=== PATIENT | female | born 1960 | race Caucasian/White ===

== ENCOUNTER 2022-03-19 06:05 | Inpatient (IN) | payer OTHER ==
[2022-03-10 11:48] LABS: BASOPHILS # (AUTO) 0.1 X10'3 (0-0.2); EOSINOPHILS # (AUTO) 0.2 X10'3 (0-0.9); EOSINOPHILS % (AUTO) 3.3 % (0-6); LYMPHOCYTES # (AUTO) 1.8 X10'3 (1.1-4.8); LYMPHOCYTES % (AUTO) 28.8 % (21-51); MEAN CORPUSCULAR HEMOGLOBIN 30.4 PG (27.0-31.0); MEAN CORPUSCULAR HGB CONC 34.4 g/dL (33.0-36.5); MEAN CORPUSCULAR VOLUME 88.2 FL (78-98); MEAN PLATELET VOLUME 8.2 FL (7.4-10.4); MONOCYTES # (AUTO) 0.4 X10'3 (0-0.9); MONOCYTES % (AUTO) 6.2 % (2-12); NEUTROPHILS # (AUTO) 3.8 X10'3 (1.8-7.7); NEUTROPHILS % (AUTO) 60.7 % (42-75); PRE OP HEMATOCRIT 41.5 % (35.0-45.0); PRE OP HEMOGLOBIN 14.3 g/dL (12.0-16.0); PRE OP PLATELET COUNT 247 X10'3 (140-440); RED BLOOD COUNT 4.71 X10'6 (4.20-5.60); RED CELL DISTRIBUTION WIDTH 12.7 % (11.5-14.5)
[2022-03-10 12:01] LABS: ALBUMIN 3.8 G/DL (3.4-5.0); ALBUMIN/GLOBULIN RATIO 1.2 (1.1-1.5); ALKALINE PHOSPHATASE 64 IU/L (46-116); BLOOD UREA NITROGEN 14 MG/DL (7-18); BUN/CREATININE RATIO 20.9 (6.6-38.0); CALCIUM 9.7 MG/DL (8.5-10.1); CHLORIDE 105 MMOL/L (99-107); CREATININE 0.67 MG/DL (0.40-0.90); PRE OP ALT 34 U/L (30-65); PRE OP ANION GAP 10 (8-16); PRE OP AST 15 U/L (10-37); PRE OP BILIRUB, TOTAL 0.4 MG/DL (0.0-1.0); PRE OP GLUCOSE 104 MG/DL (70-104); PRE OP POTASSIUM 4.2 MMOL/L (3.4-5.1); PRE OP SODIUM 143 MMOL/L (135-145); TOTAL CARBON DIOXIDE 27.7 MMOL/L (24-32); TOTAL PROTEIN 7.1 G/DL (6.4-8.2); eGFR 90 ML/MIN
[~2022-03-19] VITALS: Ht 180.3 cm; Wt 107.8 kg
[2022-03-19] VITALS (20 sets, daily range): BP systolic 123–157; BP diastolic 62–96
[~2022-03-19 06:05] MED LIST: CHOL20004 PO; CYCL5TAB PO; DECONGESTANT PO; LISI20TA28 PO; PREG100C PO; SUMA25TA35 PO; SYN0.088T PO; TUMERIC PO; cefazolin/dext.iso 2gm/50ml IV ONE; famotidine 20mg tablet PO ONE; ringers solution, lacted 1,000 ML IV SCH; vancomycin 1,500 MG in NS 300ml IV soln IV ONE
[2022-03-19] MEDS ORDERED: ketorolac trometh. 30mg/ml inj. ONE (06:55)
[2022-03-19] MEDS ORDERED: epiNEPHrine 1 mg/ml inj ONE (06:55)
[2022-03-19] MEDS ORDERED: ROPIVAcaine 0.5% (5mg/ml) 30ml vial ONE ×2 (06:56→09:26)
[2022-03-19] MEDS ORDERED: morphine 10mg/ml inj. ONE (06:56)
[2022-03-19] MEDS ORDERED: vancomycin 1,000mg inj ONE (06:56)
--- NOTE | 2022-03-19 07:30 | NUR ---
PT CSM INTACT TO BILATERAL LE, WAS ABLE TO COMPLETE 5 DAYS OF SHOWERS/OINTMENT, PT CHOSE NOT TO WATCH DVD
[2022-03-19] MEDS ORDERED: tranexamic acid inj. 1,000 MG in 0.7% saline 100 ML PMX IV ONE (07:34)
[2022-03-19] MEDS ORDERED: tetracaine 1% (10mg/ml) pres. free inj. ONE (07:36)
[2022-03-19] MEDS ORDERED: meperidine/PF 25mg/ml syringe IV PRN ×3 (08:10)
[2022-03-19] MEDS ORDERED: hydrALAZINE 20mg/ml inj. IV PRN (08:10)
[2022-03-19] MEDS ORDERED: ringers solution, lacted 1,000 ML IV SCH (08:10)
[2022-03-19] MEDS ORDERED: acetaminophen 1,000mg/100ml IV 100 ML IV PRN (08:10)
[2022-03-19] MEDS ORDERED: ROPIVAcaine 0.2%/PF PUMP/bolus 545 ML ADDCANAL SCH (08:10)
[2022-03-19] MEDS ORDERED: labetalol 20mg/4ml (5mg/ml) syringe IV PRN (08:10)
[2022-03-19] MEDS ORDERED: ROPIVAcaine 0.2% (10 MG/5 ML) BOLUS INJECTION ADDCANAL PRN (08:10)
[2022-03-19] MEDS ORDERED: morphine 4 MG/ML inj SYRINge IV PRN (08:10)
[2022-03-19] MEDS ORDERED: morphine 2 MG/ML inj. syringe IV PRN (08:10)
[2022-03-19] MEDS ORDERED: ondansetron/PF 4mg/2ml inj IV PRN ×3 (08:10→11:40)
[2022-03-19] MEDS ORDERED: proCHLORperazine 10 MG/2 ml inj IV PRN (08:10)
[2022-03-19] MEDS ORDERED: fentaNYL/PF 50MCG/1 ML 2ML syringe ONE (08:15)
[2022-03-19] MEDS ORDERED: midazolam 1 mg/ML 2ml injection ONE (08:16)
[2022-03-19] MEDS ORDERED: morphine /PF 1mg/ml 10ml inj. ONE (08:23)
[2022-03-19] MEDS ORDERED: propofol inj 20 ML IV ONE ×3 (08:56→09:26)
[2022-03-19] MEDS ORDERED: naloxone 2mg/2ml inj 2 MG in normal saline 500ml IV soln 500 ML IV PRN (09:30)
[2022-03-19] MEDS ORDERED: naloxone 0.4 mg/ml inj IV PRN ×2 (09:30→11:40)
[2022-03-19] MEDS ORDERED: diphenhydrAMINE 50 mg/ml inj IV PRN (09:30)
[2022-03-19] MEDS ORDERED: 0.9 % SODIUM CHLORIDE 10 ML VIAL ONE (10:50)
[2022-03-19] MEDS ORDERED: ceFAZolin 1000mg inj ONE (10:50)
--- NOTE | 2022-03-19 11:25 | NUR ---
Received from OR via BED, accompanied by Anesthesiologist and report given by Anesthesiologist. PATIENT WAKING UP, NO S/S OF PAIN, V/S WNL, SCD ON, 18G TO LUE, drsg to LEFT KNEE CDI with ON Q BALL AT 2ML/HR. F/C DRAINING CLEAR YELLOW URINE.
[2022-03-19] MEDS ORDERED: magnesium hydroxide 30ml (MOM) UD suspension PO PRN (11:40)
[2022-03-19] MEDS ORDERED: HYDROmorphone inj. 0.5 MG/0.5 ML DISP.SYRIN IV PRN (11:40)
[2022-03-19] MEDS ORDERED: bisacodyl 10mg suppository rectal RC PRN (11:40)
[2022-03-19] MEDS ORDERED: oxyCODONE IR 5mg (immed. release) tablet PO PRN (11:40)
[2022-03-19] MEDS ORDERED: diphenhydrAMINE 25mg capsule PO PRN ×2 (11:40)
[2022-03-19] MEDS ORDERED: HYDROmorphone 1 mg/ml syringe IV PRN (11:40)
[2022-03-19] MEDS ORDERED: acetaminophen 325mg tablet PO PRN (11:40)
--- NOTE | 2022-03-19 13:52 | NUR ---
I have received report from AMPARO Reyes in recovery and had the opportunity to ask questions and assume patient care.
--- NOTE | 2022-03-19 13:55 | NUR ---
PATIENT A&OX4, DENIES PAIN, V/S WNL, SCD ON, 18G TO LUE, drsg to LEFT KNEE CDI with ON Q BALL AT 2ML/HR. F/C DRAINING CLEAR YELLOW URINE.PATIENT TAKEN TO ROOM WITH ALL BELONGINGS AND HOOKED UP TO MONITORS IN ROOM AND GIVEN CALL LIGHT, REPORT GIVEN TO RN WHO HAS TAKEN OVER PATIENT CARE.
--- NOTE | 2022-03-19 14:05 | NUR ---
Pt arrived to O/N floor on hospital bed, accompanied by .
[2022-03-19] MEDS ORDERED: tranexamic acid 1gm/0.7% sal. 100 ML IV ONE (15:00)
[2022-03-19] MEDS: gabapentin 300mg capsule PO SCH ×2 (15:26→21:15)
[2022-03-19] MEDS: acetaminophen 325mg tablet PO SCH ×2 (15:26→21:14)
[2022-03-19] MEDS: potassium cl 20mEq in 1/2 NS 1,000 ML IV SCH ×2 (15:29→19:40)
--- NOTE | 2022-03-19 18:33 | NUR ---
Problems reprioritized. Patient report given, questions answered & plan of care reviewed with AMPARO Garcia.
[2022-03-19] MEDS ORDERED: SUMAtriptan 25 MG tablet PO PRN (19:10)
[2022-03-19] MEDS ORDERED: cyclobenzaprine 10mg tablet PO PRN (19:10)
[2022-03-19] MEDS ORDERED: SUMA50TA PO (19:14)
[2022-03-19] MEDS ORDERED: LEVO88TA7 PO (19:14)
[2022-03-19] MEDS: pregabalin 25mg capsule PO SCH (21:14)
[2022-03-19] MEDS: sennosides 8.6mg tablet PO SCH (21:15)
[2022-03-19] MEDS: vancomycin/NS 1 GM ADD-VANTAGE 250 ML IV SCH (21:15)
[2022-03-20] MEDS: ceFAZolin/D5W- 1GM premix 50 ML IV SCH ×3 (01:05→16:34)
[2022-03-20 02:00] VITALS: BP 133/72
[2022-03-20] MEDS: acetaminophen 325mg tablet PO SCH ×4 (02:00→20:20)
[2022-03-20] MEDS: potassium cl 20mEq in 1/2 NS 1,000 ML IV SCH ×2 (03:40→11:40)
[2022-03-20 06:00] VITALS: BP 165/96
--- NOTE | 2022-03-20 06:27 | NUR ---
Patient in room [facility] 4014. I have received report from AMPARO Garcia and had the opportunity to ask questions and assume patient care.
[2022-03-20 06:45] LABS: BASOPHILS % (AUTO) 0.4 % (0-1); EOSINOPHILS # (AUTO) 0.3 X10'3 (0-0.9); EOSINOPHILS % (AUTO) 4.3 % (0-6); HEMATOCRIT 37.3 % (35.0-45.0); HEMOGLOBIN 12.7 g/dl (12.0-16.0); LYMPHOCYTES % (AUTO) 13.3 % (21-51); MEAN CORPUSCULAR HEMOGLOBIN 30.2 PG (27.0-31.0); MEAN CORPUSCULAR VOLUME 88.7 FL (78-98); MEAN PLATELET VOLUME 8.2 FL (7.4-10.4); MONOCYTES # (AUTO) 0.6 X10'3 (0-0.9); MONOCYTES % (AUTO) 8.4 % (2-12); NEUTROPHILS # (AUTO) 5.6 X10'3 (1.8-7.7); NEUTROPHILS % (AUTO) 73.6 % (42-75); PLATELET COUNT 179 X10'3 (140-440); RED BLOOD COUNT 4.21 X10'6 (4.20-5.60); RED CELL DISTRIBUTION WIDTH 12.8 % (11.5-14.5); WHITE BLOOD COUNT 7.7 X10'3 (4.5-11.0)
[2022-03-20 06:59] LABS: ANION GAP 7 (8-16); CHLORIDE 106 MMOL/L (99-107); POTASSIUM 4.2 MMOL/L (3.5-5.1); SODIUM 142 MMOL/L (135-145)
[2022-03-20] MEDS: lisinopril 10 MG tablet PO SCH (08:00)
[2022-03-20] MEDS: pregabalin 25mg capsule PO SCH ×2 (08:31→20:18)
[2022-03-20] MEDS: gabapentin 300mg capsule PO SCH ×3 (08:31→20:20)
[2022-03-20] MEDS: enoxaparin 40mg/0.4ml syringe SQ SCH (08:32)
[2022-03-20] MEDS: vancomycin/NS 1 GM ADD-VANTAGE 250 ML IV SCH (09:55)
[2022-03-20] MEDS ORDERED: HYDROmorphone 1mg tablet (1/2 of 2mg tablet) PO PRN (09:55)
[2022-03-20 10:00] VITALS: BP 129/71
[2022-03-20 14:00] VITALS: BP 165/81
--- NOTE | 2022-03-20 14:16 | NUR ---
Pt s/p left TKA. Attempted visit at bedside however pt unavailable. Written protein education with RD contact information placed in chart. Pt on a regular diet and eating well, documented with 75% PO intake first meal. Will continue to follow. Addendum: 03/20/22 at [address] Amended: Links added.
[2022-03-20 18:00] VITALS: BP 150/78
--- NOTE | 2022-03-20 18:12 | NUR ---
Problems reprioritized. Patient report given, questions answered & plan of care reviewed with AMPARO Alfaro.
--- NOTE | 2022-03-20 18:20 | NUR ---
Problems reprioritized. Patient report given, questions answered & plan of care reviewed with AMPARO Hoffman.
--- NOTE | 2022-03-20 18:30 | NUR ---
Patient in room [facility]TH[facility] 4014. I have received report from Fallon CHRISTENSEN and had the opportunity to ask questions and assume patient care.
[2022-03-20] MEDS: celeCOXIB 100mg capsule PO SCH (20:18)
[2022-03-20] MEDS: sennosides 8.6mg tablet PO SCH (20:20)
[2022-03-20 22:00] VITALS: BP 147/78
[2022-03-21] MEDS: ceFAZolin/D5W- 1GM premix 50 ML IV SCH
--- NOTE | 2022-03-21 00:15 | NUR ---
Patient that is a post op total joint has standard orders of 2 doses of Ancef and for some reason when order was placed on this patient it ordered 4 doses. This patient did not have the order set put in post op so nurse from 03/19/22 night put order in individually so I believe this is where issue occurred.
[2022-03-21] MEDS: oxyCODONE IR 5mg (immed. release) tablet PO PRN ×2 (01:38→08:07)
[2022-03-21] MEDS: acetaminophen 325mg tablet PO SCH ×2 (02:11→08:05)
[2022-03-21 06:00] VITALS: BP 141/74
--- NOTE | 2022-03-21 06:23 | NUR ---
Problems reprioritized. Patient report given, questions answered & plan of care reviewed with Alayna CHRISTENSEN.
--- NOTE | 2022-03-21 06:41 | NUR ---
Patient in room [facility]TH[facility] 4014. I have received report from ERIBERTO CHRISTENSEN and had the opportunity to ask questions and assume patient care.
--- NOTE | 2022-03-21 06:53 | NUR ---
Patient in room [facility]TH[facility] 4014. I have received report from [facility] and had the opportunity to ask questions and assume patient care.
[2022-03-21] MEDS: gabapentin 300mg capsule PO SCH ×2 (08:00→13:59)
[2022-03-21] MEDS: lisinopril 10 MG tablet PO SCH (08:01)
[2022-03-21] MEDS: celeCOXIB 100mg capsule PO SCH (08:02)
[2022-03-21] MEDS: pregabalin 25mg capsule PO SCH (08:03)
[2022-03-21 08:10] LABS: BASOPHILS % (AUTO) 0.4 % (0-1); EOSINOPHILS # (AUTO) 0.4 X10'3 (0-0.9); EOSINOPHILS % (AUTO) 6.4 % (0-6); HEMATOCRIT 35.9 % (35.0-45.0); HEMOGLOBIN 12.2 g/dl (12.0-16.0); LYMPHOCYTES # (AUTO) 0.8 X10'3 (1.1-4.8); LYMPHOCYTES % (AUTO) 12.4 % (21-51); MEAN CORPUSCULAR HEMOGLOBIN 29.8 PG (27.0-31.0); MEAN CORPUSCULAR VOLUME 87.5 FL (78-98); MEAN PLATELET VOLUME 8.7 FL (7.4-10.4); MONOCYTES # (AUTO) 0.6 X10'3 (0-0.9); MONOCYTES % (AUTO) 9.6 % (2-12); NEUTROPHILS # (AUTO) 4.5 X10'3 (1.8-7.7); NEUTROPHILS % (AUTO) 71.2 % (42-75); PLATELET COUNT 187 X10'3 (140-440); RED CELL DISTRIBUTION WIDTH 12.9 % (11.5-14.5); WHITE BLOOD COUNT 6.4 X10'3 (4.5-11.0)
[2022-03-21] MEDS: enoxaparin 40mg/0.4ml syringe SQ SCH (08:10)
[2022-03-21 10:00] VITALS: BP 124/67
[2022-03-21] MEDS ORDERED: acetaminophen 325mg tablet PO PRN (11:40)
[2022-03-21 14:45] VITALS: BP 121/72
--- NOTE | 2022-03-21 15:39 | NUR ---
Patient discharged home with . New On Q medication placed on patient, education for removal provided verbally and with pamphlet explaining directions. Powder packs sent on discharge. Patient instructions read to patient and at bedside, verbal acknowledgement completed verbally by both and patient. Patient taken to lobby by . Patient will have a FWW delivered to patients home. All belongings taken by patient and . IV discontinued.
--- NOTE | 2022-03-21 15:51 | NUR ---
Patient discharged and IV was removed with canula intact. Addendum: 03/21/22 at 1552 by David SAGE Amended: Links added.
== END 2022-03-21 15:35 | disposition home or self-care (01) | DRG 470 ==
LOC: PAS IN 06:05 → ORTHO 4S 14:05
PROVIDERS: ADMIT Orthopaedic Surgery; ATTEND Orthopaedic Surgery
PROC: 0SRD0J9 Replacement of Left Knee Joint with Synthetic Substitute, Cemented, Open Approach (ICD-10-PCS; principal; 2022-03-19 08:04)
DX: M17.12 Unilateral primary osteoarthritis, left knee (principal); Z20.822 Contact with and (suspected) exposure to COVID-19
CPT/HCPCS: Z7506; Z7508; 36415; 73560; 80051; 80053; 82948; 84443; 85025; 87081; 93005; 97110; 97116; 97161; 97530; A4215; A7000; C1713; C1758; C1776; C9250; G0378; J0171; J0690; J1650; J1885; J2250; J2274; J2704; J2795; J3010; J3370; J3480; J3490; J7040; J7120; Q0163; U0003; U0005

== ENCOUNTER 2024-01-09 10:36 | Emergency (ER) | payer BC, OTHER ==
[~2024-01-09] VITALS: Ht 180.3 cm; Wt 105.0 kg
[~2024-01-09 10:36] MED LIST changes: +LEVO88TA7 PO; -SUMA25TA35 PO; +SUMA50TA PO; -SYN0.088T PO; -cefazolin/dext.iso 2gm/50ml IV ONE; -famotidine 20mg tablet PO ONE; -ringers solution, lacted 1,000 ML IV SCH; -vancomycin 1,500 MG in NS 300ml IV soln IV ONE
[2024-01-09 11:41] VITALS: PULSE 82; TEMP 98.7; O2SAT 95
[2024-01-09 13:22] VITALS: RESP 18
== END 2024-01-09 13:25 | disposition home or self-care (01) ==
LOC: ER 10:36
DX: S13.4XXA Sprain of ligaments of cervical spine, initial encounter (principal); V89.2XXA Person injured in unspecified motor-vehicle accident, traffic, initial encounter; Y93.89 Activity, other specified; Y92.89 Other specified places as the place of occurrence of the external cause; Y99.8 Other external cause status; M25.532 Pain in left wrist; M25.531 Pain in right wrist; Z88.8 Allergy status to other drugs, medicaments and biological substances; Z79.899 Other long term (current) drug therapy
CPT/HCPCS: 99282